=== PATIENT | female | born 1955 | race Caucasian/White ===

== ENCOUNTER 2018-05-23 07:29 | Inpatient (IN) | payer BC | END 2018-05-25 12:35 | disposition home or self-care (01) | LOC: PAS IN 07:29 → ORTHO 4S 15:40 | DX: M17.12 Unilateral primary osteoarthritis, left knee (principal); M25.562 Pain in left knee ==

== ENCOUNTER 2019-09-17 06:45 | Day surgery (SDC) | payer BC ==
[2019-09-11 14:39] LABS: BASOPHILS % (AUTO) 0.9 % (0-1); EOSINOPHILS # (AUTO) 0.1 X10'3 (0-0.9); LYMPHOCYTES # (AUTO) 1.7 X10'3 (1.1-4.8); LYMPHOCYTES % (AUTO) 33.1 % (21-51); MEAN CORPUSCULAR HEMOGLOBIN 31.9 PG (27.0-31.0); MEAN CORPUSCULAR HGB CONC 33.4 g/dL (33.0-36.5); MEAN CORPUSCULAR VOLUME 95.5 FL (78-98); MEAN PLATELET VOLUME 8.9 FL (7.4-10.4); MONOCYTES # (AUTO) 0.5 X10'3 (0-0.9); MONOCYTES % (AUTO) 8.9 % (2-12); NEUTROPHILS # (AUTO) 2.8 X10'3 (1.8-7.7); NEUTROPHILS % (AUTO) 55.1 % (42-75); PRE OP HEMATOCRIT 42.6 % (35.0-45.0); PRE OP HEMOGLOBIN 14.2 g/dL (12.0-16.0); PRE OP PLATELET COUNT 257 X10'3 (140-440); RED BLOOD COUNT 4.46 X10'6 (4.20-5.60); RED CELL DISTRIBUTION WIDTH 13.6 % (11.5-14.5)
[2019-09-11 15:00] LABS: ALBUMIN 3.4 G/DL (3.4-5.0); ALBUMIN/GLOBULIN RATIO 0.9 (1.1-1.5); ALKALINE PHOSPHATASE 84 IU/L (46-116); BLOOD UREA NITROGEN 9 MG/DL (7-18); BUN/CREATININE RATIO 14.8 (6.6-38.0); CALCIUM 8.9 MG/DL (8.5-10.1); CHLORIDE 109 MMOL/L (99-107); CREATININE 0.61 MG/DL (0.40-0.90); PRE OP ALT 17 U/L (30-65); PRE OP ANION GAP 5 (8-16); PRE OP AST 17 U/L (10-37); PRE OP BILIRUB, TOTAL 0.4 MG/DL (0.0-1.0); PRE OP GLUCOSE 86 MG/DL (70-104); PRE OP SODIUM 145 MMOL/L (135-145); TOTAL CARBON DIOXIDE 30.6 MMOL/L (24-32); eGFR > 90 ML/MIN
[~2019-09-17] VITALS: Ht 160 cm; Wt 108.9 kg
[~2019-09-17 06:45] MED LIST: ALPR0.255 PO; BARIATRIC FUSION VIT PO; BUPIVAcaine/PF 2.5mg/ml (0.25%) 10ml vial ONE; ESTR0.5T6 PO; IRBE150T24 PO; LEVO125T8 PO; ceFAZolin 2gm in dextrose, iso 50 ML IV ONE; famotidine 20mg tablet PO ONE; ringers solution, lacted 1,000 ML IV SCH
[2019-09-17 06:50] VITALS: BP 113/65
--- NOTE | 2019-09-17 07:15 | NUR ---
PT HAS VERY SMALL SCRATCH ON RIGHT HAND, PT STATES IT IS FROM A CAT. DR MADRIGAL IN TO SEE PT, WILL PROCEED WITH SURGERY. ADDITIONALLY, COVID SCREENING COMPLETED, PT'S COVID TEST HAS NOT BEEN RESULTED YET.
[2019-09-17] MEDS ORDERED: LIDOcaine 0.5% (5mg/ml) 50ml vial ONE (08:13)
[2019-09-17] MEDS ORDERED: ringers solution, lacted 1,000 ML IV SCH (08:22)
[2019-09-17] MEDS ORDERED: morphine 4 MG/ML inj SYRINge IV PRN (08:25)
[2019-09-17] MEDS ORDERED: ondansetron/PF 4mg/2ml inj IV PRN (08:25)
[2019-09-17] MEDS ORDERED: proCHLORperazine 10 MG/2 ml inj IV PRN (08:25)
[2019-09-17] MEDS ORDERED: meperidine/PF 25mg/ml syringe IV PRN ×3 (08:25)
[2019-09-17] MEDS ORDERED: morphine 2 MG/ML inj. syringe IV PRN (08:25)
[2019-09-17] MEDS ORDERED: midazolam 2 mg/2 ml injection ONE (08:54)
[2019-09-17] MEDS ORDERED: fentaNYL/PF 50MCG/1 ML 2ML syringe ONE (08:54)
[2019-09-17] MEDS ORDERED: propofol inj 20 ML IV ONE (09:19)
[2019-09-17 09:25] VITALS: BP 116/74
--- NOTE | 2019-09-17 09:25 | NUR ---
Received from OR via BED, accompanied by Anesthesiologist DR DUNCAN and report given by Anesthesiolgist. PATIENT A&OX4, DENIES PAIN, V/S WNL, NEUROVASCULAR CHECKS INTACT, 20G PIV LUE, SCD ON, DRESSING TO RIGHT WRIST CDI ELEVATED WITH ICEBAG APPLIED.
[2019-09-17 09:30] VITALS: BP 115/67
[2019-09-17 09:40] VITALS: BP 134/75
[2019-09-17 09:50] VITALS: BP 136/65
--- NOTE | 2019-09-17 10:25 | NUR ---
PATIENT A&OX4, DENIES PAIN, V/S WNL, NEUROVASCULAR CHECKS INTACT, 20G PIV LUE D/C, SCD OFF, DRESSING TO RIGHT WRIST CDI ELEVATED WITH ICEBAG APPLIED. I HAVE REVIEWED D/C INSTRUCTIONS WITH PATIENT AND FAMILY AND THEY HAVE VERBALIZED UNDERSTANDING. PATIENT D/C HOME WITH ALL BELONGINGS AND FAMILY GAVE TRANSPORT HOME.
== END 2019-09-17 10:25 | disposition home or self-care (01) ==
LOC: PAS 06:45
PROVIDERS: ATTEND Orthopaedic Surgery Hand Surgery
DX: G56.01 Carpal tunnel syndrome, right upper limb (principal); E66.09 Other obesity due to excess calories; M19.90 Unspecified osteoarthritis, unspecified site; G47.30 Sleep apnea, unspecified; Z98.51 Tubal ligation status; Z98.890 Other specified postprocedural states; Z96.651 Presence of right artificial knee joint; Z90.710 Acquired absence of both cervix and uterus; Z98.84 Bariatric surgery status; Z79.899 Other long term (current) drug therapy; Z88.2 Allergy status to sulfonamides
CPT/HCPCS: 29848; 36415; 80053; 82948; 85025; A6222; J2001; J2250; J2704; J3010; J3490; U0003; 93005; A4215; A6449; A7000; J7120